=== PATIENT | female | born 1965 | race Two or more races ===

== ENCOUNTER 2024-11-06 04:25 | Emergency (ER) | payer MEDICAID, SELFPAY ==
[2024-11-06 04:27] VITALS: BP 145/73; PULSE 58; RESP 20; TEMP 37.1; O2SAT 99
[2024-11-06 04:30] VITALS: BMI 24.0
[2024-11-06 04:48] VITALS: PULSE 82; RESP 18; O2SAT 99
[2024-11-06 06:32] LABS: Basophils % (Auto) 0 % (0-2.5); Eosinophils % (Auto) 0 % (0-10); Hematocrit 38.4 % (36.0-46.0); Immature Granulocytes % (Auto) 1 % (0-0); Immature Granulocytes Auto 0.07 Thou/mm3 (0.00-0.00); Lymphocytes # (Auto) 1.3 Thou/mm3 (1.0-4.8); Lymphocytes % (Auto) 13 % (10-50); Mean Corpuscular HGB Conc 33.9 g/dl (31.0-37.0); Mean Corpuscular Hemoglobin 30.6 pg (25.0-35.0); Mean Corpuscular Volume 90 fL (80-100); Monocytes % (Auto) 10 % (0-12); Neutrophils % (Auto) 77 % (37-80); Nucleated Red Blood Cell % 0 /100 WBC (0); Platelet Count 273 Thou/mm3 (140-440); RDW Standard Deviation 39.7 fL (36.4-46.3); Red Blood Count 4.25 Miln/mm3 (4.00-5.20); White Blood Count 10.4 Thou/mm3 (3.6-11.0)
--- NOTE | 2024-11-06 06:32 | PD.EDADULT ---
ED General RME/HPI General Chief complaint: Abdominal Pain Stated complaint: ABD PAIN Time Seen by Provider: 11/06/24 06:17 Arrival date/time: 11/06/24 04:25 RME / HPI RME / HPI narrative: DR. TOMLIN MAIN ED EVALUATION: 59 year old female presents to the Emergency Department accompanied by her with complaints of burning abdominal pain, nausea, and vomiting food . She denies vomiting blood or black emesis. She also has a pounding headache. No diarrhea. No fevers or chills. No sick contacts at home. No dysuria or other urinary symptoms. No cough or shortness of breath. Related Data Allergies Allergy/AdvReac Type Severity Reaction Status Date / Time No Known Allergies Allergy Verified 11/06/24 05:04 Review of Systems Review of Systems Systems Reviewed: All systems reviewed, normal except as documented Past Medical History Surgical History SURGICAL: Positive Knee Sx and Section Social History SMOKING STATUS: Never smoker SUBSTANCE USE: does not use ALCOHOL: Never ED Exam Narrative Physical exam: GENERAL APPEARANCE: alert and oriented x 4, well-developed, well-nourished, no acute distress VITALS: All vitals were reviewed and the pulse ox is 99% on room air, which is normal according to my interpretation. HEENT: Normocephalic, atraumatic; pupils equal, round, reactive to light; EOMI; mucous membranes pink, moist; oropharynx clear NECK: Supple LUNGS: CTABL; no wheezes, no rales, no rhonchi HEART: Regular rate, regular rhythm; normal S1, S2; no murmurs ABDOMEN: mild to moderate distention; normal BS; soft, no tenderness, no guarding, no rebound; no masses, no organomegaly, no hernia BACK: no CVA tenderness EXTREMITIES: atraumatic; no edema NEUROLOGIC: awake; alert and oriented x4; cranial nerves II-XII grossly intact; no focal sensory or motor deficits PSYCHIATRIC: appropriate mood and affect SKIN: warm, dry, normal color; no rashes Course Quality Measures none Orders Category Date Time Status CT Screening NOW Care 11/06/24 08:[address] abdomen pelvis w con Stat Exams 11/06/24 08:55 Completed CBC Stat Lab 11/06/24 06:18 Completed CMP [Comprehensive Metabolic Panel] Stat Lab 11/06/24 06:18 Completed Drug Screen,Urine Stat Lab 11/06/24 06:06 Ordered Lipase Stat Lab 11/06/24 06:18 Completed Magnesium Stat Lab 11/06/24 06:18 Completed Troponin I Stat Lab 11/06/24 06:18 Completed UA [Urinalysis] Stat Lab 11/06/24 06:06 Ordered Ketorolac Inj [Toradol Inj] Med 11/06/24 10:44 Discontinued 15 mg IVP X1 ONE Lidocaine 2% Viscous [Xylocaine 2% Viscous] Med 11/06/24 10:06 Discontinued 15 ml PO X1 ONE Morphine Inj Med 11/06/24 06:21 Discontinued 5 mg IVP X1 ONE Ondansetron Inj [Zofran Inj] Med 11/06/24 06:21 Discontinued 4 mg IV X1 ONE Pantoprazole Inj [Protonix Inj] Med 11/06/24 06:21 Discontinued 40 mg IVP X1 ONE Sodium Chloride 0.9% 1000 ml [Ns] 1,000 ml Med 11/06/24 06:21 Discontinued IV 999 mls/hr Sucralfate Susp [Carafate Susp] Med 11/06/24 10:06 Discontinued 1 gm PO X1 ONE mg Hyd/Al Hyd/Ge Susp [Maalox Susp] Med 11/06/24 10:06 Discontinued 30 ml PO X1 ONE Vital Signs Vital signs: Vital Signs Temperature 98.7 F 11/06/24 04:27 Pulse Rate 58 L 11/06/24 04:27 Respiratory Rate 20 11/06/24 04:27 Blood Pressure 145/73 H 11/06/24 04:27 Pulse Oximetry (%) 99 11/06/24 04:27 Oxygen Delivery Method Room Air 11/06/24 04:27 [facility] Patient data External records reviewed:: EMS form Clinical information provided by:: patient and EMS Social determinants that could affect healthcare access:: none Patient has the following chronic illnesses:: Denies any PMHx, daily medications, or known allergies. section. How is presenting disease/condition affected by chronic disease/condition?: no chronic disease Evaluation data The following diagnostics were reviewed and interpreted by me:: lab results Lab and/or radiology exams considered but not ordered:: none Interpretation Summary: See under MDM narrative. Medications Medications considered but not ordered:: none Medication administrations:: Medication Administration History Discontinued Medications Al Hydrox/Mg Hydrox/Simethicone (Mg Hyd/Al Hyd/Ge (Maalox Reg) Susp 30 Ml Udc) 30 ml PO X1 ONE Stop: 11/06/24 10:07 Last Admin: 11/06/24 10:33 Dose: 30 ml Documented By: LAMONT Sodium Chloride (Ns) 1,000 mls @ 999 mls/hr IV .Q1H1M ONE Stop: 11/06/24 07:21 Last Infusion: 11/06/24 09:57 Dose: Infused Documented By: Admin: 11/06/24 06:33 Dose: 999 mls/hr Documented By: ARANZA Ketorolac Tromethamine (Ketorolac Inj 30 Mg/Ml Vial) 15 mg IVP X1 ONE Stop: 11/06/24 10:45 Lidocaine HCl (Lidocaine Viscous 2% 15 Ml Udc) 15 ml PO X1 ONE Stop: 11/06/24 10:07 Last Admin: 11/06/24 10:33 Dose: 15 ml Documented By: LAMONT Morphine Sulfate (Morphine Sulf Inj 10 Mg/Ml Vial) 5 mg IVP X1 ONE Stop: 11/06/24 06:22 Last Admin: 11/06/24 06:34 Dose: 5 mg Documented By: ARANZA Ondansetron HCl (Ondansetron Inj 2 Mg/Ml Inj 2 Ml) 4 mg IV X1 ONE Stop: 11/06/24 06:22 Last Admin: 11/06/24 06:35 Dose: 4 mg Documented By: ARANZA Pantoprazole Sodium (Pantoprazole Inj 40 Mg Vial) 40 mg IVP X1 ONE Stop: 11/06/24 06:22 Last Admin: 11/06/24 06:36 Dose: 40 mg Documented By: ARANZA Sucralfate (Sucralfate Susp 1 Gm/10 Ml Udc) 1 gm PO X1 ONE Stop: 11/06/24 10:07 Last Admin: 11/06/24 10:34 Dose: 1 gm Documented By: LAMONT see above Consultations Consultation(s) initiated? (list below): No Diagnosis Differential Diagnosis ED Complaint MDM: GERD, gastritis, gastroenteritis Most likely diagnosis given after review of the tests above:: Abdominal pain Vomiting Headache Gastritis Elevated lipase Admission Indicated Admission indicated?: not indicated Explain why admission is indicated or not indicated:: Patient has no emergent abnormalities on his studies and can be managed on an outpatient basis. Admission Request Was there a request for admission?: No Disposition Plan Disposition Plan: Discharge Discharge Attestation Discharge Attestation: The patient and all family members were given an opportunity to ask questions and understood the discharge instructions. Discharge instructions specifically effects, indications for sooner follow up or return to the emergency department, and the expected course of current diagnosis. Patient condition: Stable Medical Decision Making MDM Narrative MDM Narrative: Ashly Parker am scribing for and in the presence of Dr. Tomlin. Differential Diagnosis Differential Diagnosis: GERD, gastritis, gastroenteritis Lab Data 11/06/24 06:18 11/06/24 06:18 Labs: Lab Results 11/06/24 Range/Units 06:18 WBC 10.4 (3.6-11.0) Thou/mm3 RBC 4.25 (4.00-5.20) Miln/mm3 Hgb 13.0 (12.0-16.0) g/dL Hct 38.4 (36.0-46.0) % MCV 90 (80-100) fL MCH 30.6 (25.0-35.0) pg MCHC 33.9 (31.0-37.0) g/dl RDW Std Deviation 39.7 (36.4-46.3) fL Plt Count 273 (140-440) Thou/mm3 Neut % (Auto) 77 (37-80) % Lymph % (Auto) 13 (10-50) % [place] % (Auto) 10 (0-12) % Eos % (Auto) 0 (0-10) % Baso % (Auto) 0 (0-2.5) % Neut # (Auto) 8.0 H (1.8-7.7) Thou/mm3 Lymph # (Auto) 1.3 (1.0-4.8) Thou/mm3 [place] # (Auto) 1.0 H (0.0-0.8) Thou/mm3 Eos # (Auto) 0.0 (0.0-0.5) Thou/mm3 Baso # (Auto) 0.0 (0.0-0.2) Thou/mm3 Immature Gran # (Auto) 0.07 H (0.00-0.00) Thou/mm3 Absolute Nucleated RBC 0.00 (0.00-0.00) Thou/mm3 Immature Gran % 1 H (0-0) % Nucleated RBC % 0 (0) /100 WBC Sodium 143 (136-145) mMol/L Potassium 4.0 (3.4-5.1) mMol/L Chloride 108 H (98-107) mMol/L Carbon Dioxide 28.5 (20.0-31.0) mMol/L Anion Gap 7 (7-16) BUN 17 (9-23) mg/dL Creatinine 0.6 (0.6-1.3) mg/dL Estim Creat Clear Calc 76.7 (>60) mL/min eGFR > 60 (60 - ) See Note BUN/Creatinine Ratio 28 H (12-20) Ratio Glucose 131 H (74-106) mg/dL Calculated Osmolality 288 (275-295) Calcium 8.7 (8.3-10.6) mg/dL Corrected Calcium 8.8 (8.5-10.1) mg/dL Magnesium 2.0 (1.6-2.6) mg/dL Total Bilirubin 0.5 (0.3-1.2) mg/dL AST 12 (0-34) U/L ALT 12 (10-49) U/L Alkaline Phosphatase 49 (46-116) U/L Troponin I < 0.020 (0.0-0.045) ng/mL Total Protein 6.1 (5.7-8.2) gm/dL Albumin 3.9 (3.5-5.0) gm/dL Globulin 2.2 L (2.3-3.5) gm/dL Albumin/Globulin Ratio 1.8 (1.2-2.2) Lipase 279 H (12-53) U/L Discharge Plan Plan Patient Disposition: HOME (Self Care) Prescriptions/Referrals Referrals: No Primary/Family,Physician [Primary Care Provider] - In 1 week Problem List Clinical Impression: Abdominal pain, Vomiting, Headache, Gastritis, Elevated lipase Patient/Caregiver Discharge Instructions Education Materials: ED Gastritis (Adult) Print Language: [place] Stand Alone Forms: [employer] Award Info., Patient Portal Info Letter
[2024-11-06] MEDS: SODIUM CHLORIDE 0.9% 1000 ML 1,000 ML 999 ML IV (06:33)
[2024-11-06] MEDS: MORPHINE SULF INJ 10 MG/ML VIAL 5 MG IVP (06:34)
[2024-11-06] MEDS: ONDANSETRON INJ 2 MG/ML INJ 2 ML 4 MG IV (06:35)
[2024-11-06] MEDS: PANTOPRAZOLE INJ 40 MG VIAL IVP (06:36)
[2024-11-06 06:52] LABS: Alanine Aminotransferase 12 U/L (10-49); Albumin, Serum 3.9 gm/dL (3.5-5.0); Albumin/Globulin Ratio 1.8 (1.2-2.2); Alkaline Phosphatase 49 U/L (46-116); Anion Gap 7 (7-16); Aspartate Amino Transferase 12 U/L (0-34); BUN/Creatinine Ratio 28 Ratio (12-20); Bilirubin,Total 0.5 mg/dL (0.3-1.2); Blood Urea Nitrogen 17 mg/dL (9-23); Calcium 8.7 mg/dL (8.3-10.6); Calcium (Corrected) 8.8 mg/dL (8.5-10.1); Carbon Dioxide 28.5 mMol/L (20.0-31.0); Chloride 108 mMol/L (98-107); Creatinine (Component) 0.6 mg/dL (0.6-1.3); Estimated Creatinine Clearance 76.7 mL/min (>60); Globulin 2.2 gm/dL (2.3-3.5); Glucose 131 mg/dL (74-106); Lipase 279 U/L (12-53); Osmolality,Calculated 288 (275-295); Sodium 143 mMol/L (136-145); Total Protein 6.1 gm/dL (5.7-8.2); Troponin I < 0.020 ng/mL (0.0-0.045); eGFR > 60 See Note
[2024-11-06 07:19] VITALS: BP 111/59; PULSE 52; RESP 17; TEMP 36.7; O2SAT 98
--- NOTE | 2024-11-06 07:30 | PC.NURSE ---
PT MADE AWARE THAT WE NEED A UA, PT REPORTS THAT SHE DOES NOT HAVE TO GO YET AND WILL LET ME KNOW WHEN SHE IS READY TO GIVE A UA.
--- NOTE | 2024-11-06 08:55 | XR_ITS ---
Examination: CT abdomen with intravenous contrast CT pelvis with intravenous contrast 2-D coronal reconstructions 2-D sagittal reconstructions Date and time of exam:November 06, 2024 0933 hrs. Indications: Epigastric pain beginning yesterday. CTDI: vol (mGy) 6.66 DLP: (mGycm) 298 Technique: Multiple axial sections of the abdomen and pelvis have been obtained. 64 slice high-resolution scanner used. 3 mm axial sections have been obtained, post intravenous injection 60 cc [id number] 2-D sagittal, coronal reconstructions obtained. Low dose protocols were performed. One or more of the following dose reduction techniques were used; automated exposure control, adjustment of the mA and/or KV according to patient size, use of iterative reconstruction technique. Findings: 17 mm liver cyst Fatty infiltration throughout the liver. Spleen is not enlarged Cholelithiasis, negative for cholecystitis No extrahepatic biliary tract dilatation Normal pancreas. No renal or ureteral calculi, no hydronephrosis Aorta normal size. No bowel obstruction. Normal appendix No diverticulitis Anteverted atrophic uterus No pelvic mass Urinary bladder intact Mild osteopenia Impression: Cholelithiasis, negative for cholecystitis No renal or ureteral calculi, no hydronephrosis Normal appendix
[2024-11-06 09:02] VITALS: BP 110/59; PULSE 57; RESP 16; TEMP 36.7; O2SAT 97
[2024-11-06] MEDS: LIDOCAINE VISCOUS 2% 15 ML UDC PO (10:33)
[2024-11-06] MEDS: MG HYD/AL HYD/SIME (Maalox Reg) SUSP 30 ML UDC PO (10:33)
[2024-11-06] MEDS: SUCRALFATE SUSP 1 GM/10 ML UDC PO (10:34)
[2024-11-06] MEDS: KETOROLAC INJ 30 MG/ML VIAL 15 MG IVP (10:51)
[2024-11-06 11:27] VITALS: BP 110/63; PULSE 62; RESP 16; TEMP 36.7; O2SAT 98
== END 2024-11-06 11:30 | disposition home or self-care (01) ==
PROVIDERS: Emergency Provider Emergency Medicine
DX: K29.70 Gastritis, unspecified, without bleeding (principal); R51.9 Headache, unspecified
CPT/HCPCS: 36415; 74177; 80053; 80307; 81001; 83690; 83735; 84484; 85025; 96361; 96374; 96375; 99285; A4649; J1885; J2270; J2405; J2470; J3490; J7030; Q9967; A9270